=== PATIENT | female | born 1950 | race Caucasian/White ===

== ENCOUNTER → 2023-12-06 14:51 | Outpatient (REF) | payer MEDICARE, SELFPAY | LOC: PAVMRI 14:51 | PROVIDERS: ATTENDING PHYSICIAN Orthopaedic Surgery; FAMILY PHYSICIAN Family Medicine | DX: M25.511 Pain in right shoulder (principal) | CPT/HCPCS: 73221 ==

== ENCOUNTER 2024-01-26 21:12 | Emergency (ER) | payer MEDICARE, SELFPAY ==
[2024-01-26 21:15] VITALS: BP 121/61; BMI 20.4
--- NOTE | 2024-01-26 23:50 | ED.GENMED ---
History of Present Illness
General
Chief Complaint: Skin Problem
Source: patient, spouse and family (Daughter who is also at bedside)
Exam Limitations: none and dementia (Patient with history of dementia, poor historian.)
Time Seen by Provider: 01/26/24 23:05
Nursing documentation reviewed up to this point in time: agreed with
Travel History
Have you had any contact with someone who has COVID-19?: No
Do you have any symptoms of coronavirus? Fever > 100 degrees, chills, cough, shortness of breath, sore throat, loss of taste or smell, muscle aches, or headache?: No
History of Present Illness
History of Present Illness:
This is a 73-year-old woman who resides at home with her . She underwent right shoulder replacement surgery today by Dr. Ramos.
Uneventful surgery and continues to feel well but she has history of moderate dementia, poor short-term memory and she inadvertently removed her surgical dressings including Steri-Strips this evening in an attempt to take a shower.
According to family, she did not take shower, did not get the surgical wound wet and temporary dry dressing was placed by the daughter and she arrives with her and daughter for wound check as per instructions by orthopedic surgeon.
There has been no drainage nor bleeding from the wound. She denies pain, denies weakness nor numbness.
Right arm is held in a sling/shoulder immobilizer.
She has suffered no falls.
Past History
Past History
ED Past Medical History: Hypercholesterolemia and Other (Dementia)
ED Past Surgical History: Orthopedic (Right shoulder replacement January 26, 2024) and Tonsilectomy
Social History
Tobacco: Non-smoker
Alcohol: None
Drug: None
Living: with family
Employment: Retired
Family History
Family History: Other (Noncontributory)
Phy Exam
Physical Exam
Physical Exam:
GENERAL: This is a 73-year-old woman who appears her stated age, bright and alert, pleasant/pleasantly confused. Appears in no acute distress. and daughter are accompanying.
EYE: anicteric
NECK: Supple, nontender, no meningismus, no significant adenopathy.
ENT: oral mucosa is moist. No rhinorrhea.
CARDIAC: Regular rate and rhythm. no murmur.
LUNGS: Clear breath sounds bilaterally, no acute respiratory distress, no wheezes/rales/rhonchi
ABDOMEN: Soft, nondistended, without focal tenderness
NEUROLOGICAL: Alert and oriented x2, no focal neuro deficits. Gait is fonseca and steady.
SKIN: Warm and dry, normal color, skin intact. No rash.
MUSCULOSKELETAL: Right arm is held in shoulder immobilizer. Right shoulder/upper arm has an intact vertical surgical wound anterior shoulder that extends to the proximal upper arm. There is very minimal local ecchymosis. Scant blood-tinge to 2 x
2's that were covering the surgical wound. No drainage from wound. No soft tissue swelling. No local tenderness to palpation. There is no tenderness to the elbow nor forearm. Peripheral pulses are full and equal bilaterally. Hand grasp are
full and equal bilaterally.
PSYCH: Bright and alert, pleasant, cooperative. Mildly confused.
Course
Vital Signs
Initial and Last Documented VS:
Initial Vital Signs
Temp Pulse Resp BP Pulse Ox
98.5 F 55 16 121/61 98
01/26/24 21:15 01/26/24 21:15 01/26/24 21:15 01/26/24 21:15 01/26/24 21:15
Last Documented Vital Signs
Temp Pulse Resp BP Pulse Ox
98.5 F 55 16 121/61 98
01/26/24 21:15 01/26/24 21:15 01/26/24 21:15 01/26/24 21:15 01/26/24 21:15
MDM/Problems Addressed
Differential Diagnosis Includes:
Patient with history of dementia underwent right shoulder replacement earlier today has inadvertently removed all the dressings and Steri-Strips.
Surgical wound looks great. There is no drainage. Patient appears comfortable.
Wound has been dressed with Steri-Strips and then [place] dressing.
Additional dressing supplies have been handed to the daughter and encouraged both daughter and to keep a close eye on the patient while she recovers.
Prompt follow-up with orthopedics for recheck.
Chronic conditions affecting care: Psychiatric illness (Moderate dementia)
*Pulse Oximetry
Patient hypoxic: no
*Critical Care Note
Total Time (30-74mins, 75-104mins- exclusive of procedures): Not Applicable
ED Attending Note
-
Portions of this chart may have been created with voice recognition software.� Occasional wrong word or��sound alike� substitutions may have occurred due to the inherent limitations of voice recognition software.
Discharge Plan
Departure
Patient Disposition: Home (Routine Discharge)
Date of Disposition: 01/26/24
Time of Disposition: 23:50
Patient with high blood pressure during this ER visit?: No
Condition: Good
Discharge Problem:
Encounter for post surgical wound check
Instructions: Wound Care (DC)
Prescriptions:
No Action
simvastatin 20 MG tablet
1 tab PO DAILY
gentamicin 0.3 % drops
1 drp ophthalmic (eye) Q4H Qty: 5 0RF
diclofenac potassium 50 mg tablet
50 mg PO BID Qty: 20 0RF
Referrals:
Aly Ramos MD [Active] - Call in 1-3 days for appt
Lesly Canales MD [Family Provider] -
Interventions
Interventions:
*Risk Screen - Suicide Last Done: 01/26/24 21:15
*Neglect/Abuse Screening Last Done: 01/26/24 21:15
ED- Fall Risk Assessment Last Done: 01/26/24 21:15
*ED COVID-19 Vaccine History Last Done: 01/26/24 21:15
*Nursing Disposition Last Done: 01/26/24 23:56
ED-Skin Assessment Last Done: 01/26/24 23:00
Discharge Date and Time
Discharge Date/Time: 01/26/24 23:59
Print Language: BULGARIAN
== END 2024-01-26 23:59 | disposition home or self-care (01) ==
LOC: EMR 21:12
PROVIDERS: EMERGENCY PHYSICIAN Emergency Medicine; FAMILY PHYSICIAN Family Medicine
DX: Z48.02 Encounter for removal of sutures (principal); F03.B0 Unspecified dementia, moderate, without behavioral disturbance, psychotic disturbance, mood disturbance, and anxiety; E78.00 Pure hypercholesterolemia, unspecified; Z96.611 Presence of right artificial shoulder joint
CPT/HCPCS: 99282